=== PATIENT | female | born 1995 | race Caucasian/White ===

== ENCOUNTER 2017-06-21 16:15 | Emergency (ER) | payer MEDICAID, OTHER ==
[2017-06-21] MEDS: ACETAMINOPHEN 325 MG TAB PO ×2 (17:58)
[2017-06-21] MEDS: METHOCARBAMOL 500 MG TAB PO ×2 (17:58)
== END 2017-06-21 18:20 | disposition home or self-care (01) ==
LOC: M ED 16:15
DX: S30.810A Abrasion of lower back and pelvis, initial encounter (principal); S00.83XA Contusion of other part of head, initial encounter; S80.11XA Contusion of right lower leg, initial encounter; V49.49XA Driver injured in collision with other motor vehicles in traffic accident, initial encounter; Y92.410 Unspecified street and highway as the place of occurrence of the external cause; Y93.89 Activity, other specified; Y99.8 Other external cause status; Z88.0 Allergy status to penicillin
CPT/HCPCS: 99283